=== PATIENT | male | born 1945 | race Caucasian/White ===

== ENCOUNTER 2017-01-10 14:56 | Emergency (ER) | payer BC ==
--- NOTE | 2017-01-10 15:20 | Emergency Department Record ---
History of Present Illness - General Chief Complaint: Cough Stated Complaint: ELIVATED LABS Time Seen by Provider: 01/10/17 15:02 Source: Patient Mode of Arrival: Ambulatory Limitations: No limitations - History of Present Illness Initial Comments: The patient is here due to a 2 week hx of cough, congestion, sputum production and mild ANTONIETTA only when coughing. The patient denies any CP, fever, chills, MOYER, or dyspnea when NOT coughing. The patient feels he has a URI and needs an antibiotic for his sputum. The patient was sent over from the due to a mildly elevated D-dimer. MD Complaint: Cough, Nasal congestion Onset/Timin -: Week(s) - Related Data Home Medications Medication Instructions Recorded Confirmed Last Taken Aspirin [Aspirin EC] 81 mg PO DAILY 06/25/16 06/25/16 06/25/16 Simvastatin [Zocor] 20 mg PO QHS 06/25/16 06/25/16 06/18/16 Diphenhydramine HCl [Benadryl 50 mg PO QD tab 01/10/17 Unknown Allergy] Previous Rx's Medication Instructions Recorded Albuterol Sulfate [Proair Hfa] 2 puff IH QID PRN #1 inhaler 01/10/17 Benzonatate [Tessalon] 1 cap PO Q8H PRN #15 cap 01/10/17 Levofloxacin [Levaquin] 500 mg PO DAILY #7 tablet 01/10/17 Allergies Allergy/AdvReac Type Severity Reaction Status Date / Time No Known Allergies Allergy Unverified 01/10/17 13:15 Travel Screening - Travel/Exposure Within Last 30 Days Have you traveled within the last 30 days?: No - Travel/Exposure Within Last Year Have you traveled outside the [place] in the last year?: No - Additonal Travel Details Have you been exposed to anyone with a communicable illness?: No - Travel Symptoms Symptom Screening: None Review of Systems Constitutional: Denies: Chills, Fever, Malaise Eyes: Denies: Eye discharge, Eye pain ENT: Reports: Congestion Respiratory: Reports: Cough. Denies: Dyspnea, Hemoptysis, Stridor, Wheezes Cardiovascular: Denies: Arrhythmia, Chest pain Past Medical History - SOCIAL HISTORY Smoking Status: Never smoker Alcohol Use: Heavy Alcohol Use Comment: 6 beers a day Drug Use: None - RESPIRATORY Hx Respiratory Disorders: No - CARDIOVASCULAR Hx Cardio Disorders: No - NEURO Hx Neuro Disorders: Yes Hx Dizziness: Yes - GI Hx GI Disorders: No - Hx Genitourinary Disorders: No - ENDOCRINE Hx Endocrine Disorders: No - MUSCULOSKELETAL Hx Musculoskeletal Disorders: No - PSYCH Hx Psych Problems: No - HEMATOLOGY/ONCOLOGY Hx Hematology/Oncology Disorders: No Family Medical History Any Significant Family History?: Yes Hx Cancer: Father, Mother Physical Exam - General General Appearance: Alert, Oriented x3, Cooperative, No acute distress - Head Head exam: Atraumatic, Normocephalic, Normal inspection - Eye Eye exam: Normal appearance, PERRL - ENT Throat exam: Normal inspection. negative: Tonsillar erythema, Tonsillar exudate - Neck Neck exam: Normal inspection, Full ROM. negative: Lymphadenopathy, Meningismus , Tenderness - Respiratory Respiratory exam: Normal lung sounds bilaterally. negative: Decreased breath sounds, Respiratory distress, Rhonchi, Stridor, Wheezes - Cardiovascular Cardiovascular Exam: Regular rate, Normal rhythm, Normal heart sounds - GI/Abdominal GI/Abdominal exam: Soft, Normal bowel sounds. negative: Tenderness - Extremities Extremities exam: Normal inspection, Full ROM, Normal capillary refill. negative: Tenderness - Neurological Neurological exam: Normal gait. negative: Abnormal gait Course Vital Signs 01/10/17 01/10/17 15:03 15:10 Temperature 98.2 F 98.2 F Pulse Rate 85 85 Respiratory 20 20 Rate Blood Pressure 124/78 124/78 Pulse Ox 92 L 92 L - Reevaluation(s) Reevaluation #1: I did review the patient's labs, and xray. It appears that the patient has a URI and will need an oral Abx and probably an inhaller. I did discuss the D- dimer of .74 with the patient. Due to the fact he was sent to the ER for a chest CT I did attempt to order it but the patient refused. I did explain to him that I felt it was very unlikely that had a PE and it appears he has bronchitis or early walking pneumonia. I did explain the CT is to see if the patient has a blood clot in his lungs and that by NOT doing the test and finding a PE if there is one present he could go home and have a stroke, become disabled and even . The patient understands and accepts the risks and is still refusing. I did recheck his RA biox and he was running 94-95%. 01/10/17 15:51 Medical Decision Making - Data Complexity MDM Data: Labs Ordered and/or Reviewed, X-Ray Ordered and/or Reviewed - Radiology Data Radiology results: Report reviewed (CXR: Neg per Rad.) Disposition Disposition: Discharge Clinical Impression: Upper respiratory infection, acute Disposition: Home, Self-Care Condition: (1) Good Instructions: Upper Respiratory Infection (ED) Additional Instructions: Please take the antibiotic, inhaller and cough medicine as directed. Please see Dr. Yun early next week for recheck. Return to the ER for any increased cough , fever, CP, SOB or fever. Prescriptions: Levofloxacin [Levaquin] 500 mg PO DAILY #7 tablet Albuterol Sulfate [Proair Hfa] 2 puff IH QID PRN #1 inhaler PRN Reason: Cough And Difficulty Breathing Benzonatate [Tessalon] 1 cap PO Q8H PRN #15 cap PRN Reason: Cough Forms: Patient Portal Access Time of Disposition: 15:38
== END 2017-01-10 15:46 | disposition home or self-care (01) ==
LOC: ER 14:56
DX: J06.9 Acute upper respiratory infection, unspecified (principal); R06.00 Dyspnea, unspecified; R05 Cough; R79.89 Other specified abnormal findings of blood chemistry
CPT/HCPCS: 71020; 80048; 83880; 85025; 85379; 99283